=== PATIENT | male | born 1960 | race Caucasian/White ===

== ENCOUNTER → 2020-06-21 | Outpatient (CLI) | payer OTHER | END | disposition home or self-care (01) | LOC: COVID19 00:50 | PROVIDERS: ATTEND Family Medicine | DX: Z20.828 Contact with and (suspected) exposure to other viral communicable diseases (principal) ==

== ENCOUNTER 2023-01-26 05:07 | Emergency (ER) | payer OTHER ==
[~2023-01-26] VITALS: Ht 182.8 cm; Wt 93.0 kg
[2023-01-26] MEDS ORDERED: PEPCID40 MG PO (05:25)
[2023-01-26] MEDS ORDERED: CRESTOR5 M1 PO (05:25)
[2023-01-26] MEDS ORDERED: METFORMIN XR500 MG PO (05:25)
[2023-01-26] MEDS ORDERED: ONDANSETRON4 MG SL (06:02)
[2023-01-26] MEDS ORDERED: HYDROCODONE-AC1 EAC1 PO (06:02)
[2023-01-26] MEDS ORDERED: FLOMAX0.4 MG PO (06:02)
== END 2023-01-26 06:07 | disposition home or self-care (01) ==
LOC: ED 05:07
DX: N13.2 Hydronephrosis with renal and ureteral calculous obstruction (principal); N13.4 Hydroureter; E11.9 Type 2 diabetes mellitus without complications; K21.9 Gastro-esophageal reflux disease without esophagitis; Z79.899 Other long term (current) drug therapy

== ENCOUNTER 2024-12-09 14:22 | Emergency (ER) | payer OTHER ==
[~2024-12-09] VITALS: Wt 90.7 kg
[~2024-12-09 14:22] MED LIST: CRESTOR5 M1 PO; FLOMAX0.4 MG PO; HYDROCODONE-AC1 EAC1 PO; METFORMIN XR500 MG PO; ONDANSETRON4 MG SL; PEPCID40 MG PO
[2024-12-09 15:22] LABS: BASO % 0.5 % (0.0-1.0); EOS % 0.6 % (1.0-4.0); HEMATOCRIT 41.3 % (42.0-52.0); MEAN CELL VOLUME 93.7 fl (80.0-94.0); MEAN CORPUSCULAR HGB 31.5 pg (27.0-31.0); MEAN CORPUSCULAR HGB CONC 33.7 g/dl (33.0-37.0); MEAN PLATELET VOLUME 9.3 fl (9.6-12.3); MONO # 0.3 10*3/uL (0.1-1.0); MONO % 5.5 % (3.0-9.0); NEUT # 4.8 10*3/uL (2.3-7.9); PLATELET COUNT AUTOMATED 186 10*3/uL (130-400); RED BLOOD COUNT 4.41 10*6/uL (4.50-5.90); RED CELL DISTRI WIDTH 11.9 % (0-14.5); WHITE BLOOD COUNT 6.2 10*3/uL (4.8-10.8)
[2024-12-09 15:44] LABS: ALKALINE PHOSPHATASE 62 U/L (46-116); BUN 30 mg/dl (9-23); CHLORIDE 105 mmol/L (98-107); LIPASE 45 U/L (12-53); POTASSIUM 4.1 mmol/L (3.4-5.1); SGPT/ALT 17 U/L (5-49); TOTAL PROTEIN 6.5 gm/dL (6.0-8.0)
== END 2024-12-09 16:30 | disposition home or self-care (01) ==
LOC: ED 14:22
PROVIDERS: Physician Assistant Medical
DX: K59.00 Constipation, unspecified (principal); N28.1 Cyst of kidney, acquired; K21.9 Gastro-esophageal reflux disease without esophagitis; E11.9 Type 2 diabetes mellitus without complications; Z79.899 Other long term (current) drug therapy; Z87.442 Personal history of urinary calculi; Z98.890 Other specified postprocedural states